=== PATIENT | male | born 1940 | race Caucasian/White ===

== ENCOUNTER 2020-02-26 17:47 | Emergency (ER) | payer OTHER ==
[~2020-02-26] VITALS: Ht 180.3 cm; Wt 98.0 kg
--- NOTE | 2020-02-26 17:57 | NUR ---
[id number], FINISHED HD, SLIPPED OUT OF WC W C/O LOWER BACK PAIN 12/21 PS, -KO. TO ER BED 6, HOOKED TO MONITOR, CHANGED TO HOSP GOWN, WARM BLANKET PROVIDED. PATIENT AAO x 3. BREATHING EVEN AND UNLABORED. NOTED W R CHEST PORT-A-CATH AND R CHEST PACEMAKER. AWAITING MD ZAMORA. KEPT COMFORTABLE
--- NOTE | 2020-02-26 18:41 | NUR ---
DR HUERTAS AT BEDSIDE
[2020-02-26] MEDS ORDERED: HYDROCODONE/APAP 10/325MG TABLET ONE (19:15)
[2020-02-26] MEDS: HYDROCODONE/APAP 10/325MG TABLET PO ONE (19:17)
--- NOTE | 2020-02-26 19:18 | NUR ---
REPORT GIVEN TO RONIT WILLS RN FOR [facility]
--- NOTE | 2020-02-26 20:18 | NUR ---
CALLED [facility] FOR TRANSPORT TO FACILITY, AWAITING CALL BACK
--- NOTE | 2020-02-26 20:36 | NUR ---
SPOKE WITH JORGE (RESEARCH ASSOCIATE PROFESSOR FROM [facility]) AND INFORMED PT WILL RETURN TO FACILITY. WILL CALL BACK WITH TRANSPORTATION [facility] ([phone])
--- NOTE | 2020-02-26 20:41 | NUR ---
[facility] ETA 1 HOUR
--- NOTE | 2020-02-26 21:34 | NUR ---
REPORT GIVEN TO [facility] [address] FOR TRANSPORTATION [facility]
[2020-02-26 21:44] VITALS: BP 98/43
== END 2020-02-26 21:44 | disposition home or self-care (01) ==
LOC: ER 17:49
DX: M54.5 Low back pain (principal); G89.29 Other chronic pain; R60.0 Localized edema; E11.22 Type 2 diabetes mellitus with diabetic chronic kidney disease; N18.6 End stage renal disease; Z99.2 Dependence on renal dialysis; Z88.8 Allergy status to other drugs, medicaments and biological substances
CPT/HCPCS: 72100-TC